=== PATIENT | male | born 1945 | race Caucasian/White ===

== ENCOUNTER → 2020-07-13 11:13 | Outpatient (CLI) | payer OTHER, SELFPAY ==
--- NOTE | ~2020-07-13 | XR_ITS ---
XR chest 2V 07/13/2020 11:45 Indication: Dyspnea with exertion Procedure: PA and lateral views of the chest Comparison: 06/20/2019 Findings: Borderline heart size with mild interstitial edema. Small pleural effusions. No pneumothora x. No acute osseous abnormality. Impression: 1: Mild interstitial edema with small pleural effusions. Reviewed, dictated and finalized at location A. Impression: 1: Mild interstitial edema with small pleural effusions.
== END ==
PROVIDERS: PCP Family Medicine Adolescent Medicine; Visit Provider Family Medicine Adolescent Medicine
DX: R06.9 Unspecified abnormalities of breathing (principal); R60.9 Edema, unspecified; J90 Pleural effusion, not elsewhere classified
CPT/HCPCS: 71046

== ENCOUNTER 2020-07-17 10:09 | Inpatient (IN) | payer OTHER, SELFPAY ==
[2020-07-17] VITALS (31 sets, daily range): BP systolic 94–127; BP diastolic 59–78; PULSE 93–108; RESP 16–35; TEMP 36.2–37; O2SAT 91–96; BMI 29.6
--- NOTE | 2020-07-17 | ECHO_ITS ---
Patient Info Name: Leo Degroot Age: 74 years : 1945 Gender: Male Ht: 72 in Wt: 218 lbs BSA: 2.26 m2 HR: 95 bpm BP: 94 / 59 mmHg Heart Rhythm: Sinus Rhythm Technical Quality: Good Exam Date: 07/17/2020 3:55 PM Exam Location: [facility] Patient Status: Inpatient Admit Date: 07/17/2020 Staff Ordering Physician: Brittney Rose NP Assistant Service Manager: Sukumar Jaime RDCS Attending Provider: Eliazar Rashid MD Referring Physician: Rose AQUINO; Exam Type: CA echo dop color flow w con Study Info Indications I21.4 - Non-ST elevation (NSTEMI) myocardial infarction Complete two-dimensional, color flow and Doppler transthoracic echocardiogram is performed with contrast to opacify the left ventricle and to improve the deliniation of the left ventricle endocardial borders. Strain analysis performed. Contrast/Agitated Saline Contrast/Ag. Saline: Definity Amount: 3.00 ml Administered By: Yasemin Bonilla RN Existing IV Access: Yes History/Risk Factors NSTEMI; CHF w/ BNP 4520, CAD w/ stent to LAD, DM2, SOB, orthopnea, edema. Summary 1. Left ventricular chamber dimension is moderately enlarged. 2. Left ventricular systolic function is severely reduced, estimated at 20-25%. 3. There is mildly increased left ventricular wall thickness. 4. The left ventricular diastolic function is grade II diastolic dysfunction. 5. There is no thrombus visualized in the left ventricle. 6. The basal inferior wall, mid inferior wall, basal anterior wall, mid anterior wall, basal inferoseptal, and mid inferolateral wall are hypokinetic. 7. Left atrial chamber dimension is mildly enlarged. 8. The mitral valve has thickened leaflets. 9. There is moderate mitral valve regurgitation. 10. There is mild pulmonic regurgitation. Left Ventricle Left ventricular chamber dimension is moderately enlarged. Left ventricular systolic function is severely reduced, estimated at 20-25%. There is mildly increased left ventricular wall thickness. The left ventricular diastolic function is grade II diastolic dysfunction. There is no thrombus visualized in the left ventricle. Global longitudinal strain is abnormal at -6 %. The apex, mid inferoseptal, and mid anteroseptal are akinetic. The basal inferior wall, mid inferior wall, basal anterior wall, mid anterior wall, basal inferoseptal, and mid inferolateral wall are hypokinetic. All other bear appear normal. Right Ventricle Right ventricular chamber dimension is normal. Right ventricular systolic function is normal. Left Atria Left atrial chamber dimension is mildly enlarged. Right Atria Right atrial chamber dimension is normal. Atrial Septum Intact interatrial septum visualized by color flow imaging. Aortic Valve The aortic valve is trileaflet. There is mild aortic valve sclerosis. There is no aortic valve stenosis. There is trace aortic valve regurgitation. Pulmonic Valve The pulmonic valve is normal. There is no pulmonic valve stenosis. There is mild pulmonic regurgitation. Mitral Valve The mitral valve has thickened leaflets. There is no mitral valve stenosis. There is moderate mitral valve regurgitation. Tricuspid Valve The tricuspid valve leaflets are normal. There is no significant tricuspid valve stenosis. There is trace tricuspid valve regurgitation. Pericardium/Pleural The pericardium appears normal. There is small pericardial e
--- NOTE | ~2020-07-17 | XR_ITS ---
XR chest ET placement 07/18/2020 07:11 Indication: Endotracheal tube placement. Respiratory arrest. Procedure: AP portable chest Comparison: Comparison to multiple prior studies sequentially, with oldest reviewed study dated 06/20. Findings: Endotracheal tube tip 3.8 cm above the ruddy. NG tube passes into the stomach. Cardiomegal y with pulmonary edema. Small right pleural effusion. No pneumothorax. No acute osseous abnormality. Impression: 1: Cardiomegaly with progression of pulmonary edema. 2: Small right pleural effusion. Reviewed, dictated and finalized at location A. Impression: 1: Cardiomegaly with progression of pulmonary edema. 2: Small right pleural effusion.
--- NOTE | ~2020-07-17 | CT_ITS ---
EXAMINATION: CT brain wo con DATE: 07/18/2020 06:14 INDICATION: Possible stroke. Shortness of breath. TECHNIQUE: Computed tomography (CT) of the head was performed without intravenous contrast. The dose- length product was 681.00 mGy-cm. The mA was adjusted according to patient size. Iterative reconstruc tion technique was employed. COMPARISON: None FINDINGS: No acute intracranial hemorrhage. Mild generalized atrophy. There are scattered mild perive ntricular and subcortical white matter changes, most likely related to small vessel ischemic disease (microangiopathy). There is possible dense right MCA sign which can be associated with acute embolism . CTA of the brain may be useful for further evaluation. Mild mucosal thickening of the sphenoid sinu s. Mastoids are pneumatized. No depressed skull fractures. IMPRESSION: 1. Possible dense right MCA sign. Consider correlation with CTA of the brain as clinically warranted. Reviewed, dictated and finalized at location A.
--- NOTE | ~2020-07-17 | XR_ITS ---
XR chest 1V portable 07/18/2020 06:23 Indication: Respiratory distress. Procedure: AP view of the chest dated 07/18/2020 Comparison: Comparison to multiple prior studies sequentially, with oldest reviewed study dated 05/08. Findings: Heart size normal. Diffuse bilateral airspace disease which may represent edema or pneumoni a. Small right pleural effusion. No pneumothorax. No acute osseous abnormality. Impression: 1: Progression of diffuse bilateral airspace disease which most likely represents edema. Pneumonia le ss favored although not excluded. Reviewed, dictated and finalized at location A. Impression: 1: Progression of diffuse bilateral airspace disease which most likely represen ts edema. Pneumonia less favored although not excluded.
--- NOTE | ~2020-07-17 | XR_ITS ---
XR abdomen NG/feed tube insert INDICATION: Evaluate NG tube position. TECHNIQUE: Limited KUB perform for evaluating NG tube . COMPARISON: No prior studies for comparison. FINDINGS: NG tube tip in the stomach. Visualized bowel gas pattern is unremarkable.Small right pleur al effusion. Bilateral airspace disease, most likely edema. IMPRESSION: 1: NG tube tip in the stomach, side port near the expected location of the GE junction. Reviewed, dictated and finalized at location A.
--- NOTE | ~2020-07-17 | XR_ITS ---
XR chest 2V 07/17/2020 10:49 Indication: Shortness of breath for one week Procedure: 2 view chest Comparison: Comparison to multiple prior studies sequentially, with oldest reviewed study dated 06/20. Findings: Developing bilateral airspace disease and small pleural effusions compared with prior studi es. No pneumothorax. No acute osseous abnormality. Impression: 1: Developing bilateral airspace disease with small pleural effusions. Differential diagnosis include s edema and/or pneumonia. Reviewed, dictated and finalized at location A. Impression: 1: Developing bilateral airspace disease with small pleural effusions. Carlos miles diagnosis includes edema and/or pneumonia.
--- NOTE | 2020-07-17 10:18 | ECG_ITS ---
Measurements Intervals [place] Rate: 101 P: 22 CT: 161 QRS: 31 QRSD: 88 T: 81 QT: 354 QTc: 460 Interpretive Statements SINUS TACHYCARDIA BORDERLINE R WAVE PROGRESSION, ANTERIOR LEADS ANTERIOR ST ELEVATION MYOCARDIAL INJURY- RECENT BASELINE ARTIFACT- I, II, III, AVR, AVL, AVF, V1, V5 ABNORMAL ECG Electronically Signed On 07-17-2020 20:05:45 CDT by Marcel Anton D.O.
[2020-07-17 10:31] LABS: Basophils Percent Auto 0.5 % (0.2-1.2); Eosinophils Percent Auto 0.3 % (0-4.4); Hematocrit 38.8 % (42.0-52.0); Hemoglobin 12.6 g/dL (14.0-18.0); Immature Granulocyte Absolute 0.04 K/mm3 (0.00-0.031); Immature Granulocyte Percent A 0.5 % (0-0.5); Lymphocytes Absolute Auto 1.03 K/mm3 (0.9-3.2); Lymphocytes Percent Auto 11.8 % (18.3-44.2); Mean Corpuscular HGB Conc 32.5 g/dl (32-36); Mean Corpuscular Hemoglobin 30.5 pg (26-34); Mean Corpuscular Volume 93.9 fl (80-100); Monocytes Absolute Auto 0.6 K/mm3 (0.1-0.6); Monocytes Percent Auto 7.3 % (2.6-8.5); Neutrophils Percent Auto 79.6 % (45.5-73.1); Platelet Count Result 251 k/mm3 (150-375); Red Blood Count 4.13 M/mm3 (4.6-6.20); Red Cell Distribution Width 13.5 % (11.5-14.5); White Blood Count 8.8 K/mm3 (4.5-10.0)
[2020-07-17 10:39] LABS: INR 1.1; Prothrombin Time 14.1 Seconds (11.1-14.7)
[2020-07-17 10:40] LABS: Partial Thromboplastin Time 27.7 SECONDS (22.3-36.8)
--- NOTE | 2020-07-17 10:40 | ED.SOB ---
HPI - SOB/Dyspnea General Chief Complaint: Shortness of Breath/Dyspnea Stated Complaint: sob/feet swelling Time Seen by Provider: 07/17/20 10:15 Source: patient Mode of arrival: ambulatory Limitations: no limitations History of Present Illness HPI Narrative: Patient is a 74-year-old male complaining of shortness of breath accompanied by chest tightness x1 week, worse for the past few days. Patient states his shortness of breath is worse with exertion also noticed increased lower extremity edema bilaterally. Patient denies any fever abdominal pain nausea vomiting or diaphoresis. Related Data Allergies Allergy/AdvReac Type Severity Reaction Status Date / Time No Known Allergies Allergy Unknown Verified 07/17/20 10:18 Review of Systems Review of Systems: All systems reviewed & are unremarkable except as noted in HPI and below Constitutional: Constitutional: Denies body ache(s), Denies chills, Denies excessive sweating, Denies fatigue, Denies fever(s), Denies headache(s), Denies lethargy, Denies malaise, Denies weakness and Denies weight loss Eyes: Eyes: Denies blurry vision, Denies change in vision and Denies loss of vision ENT: Denies dizziness, Denies ear discharge, Denies headache(s), Denies lip swelling, Denies epistaxis, Denies nasal congestion, Denies neck pain, Denies throat swelling and Denies tongue swelling Cardiovascular: Cardiovascular: Denies diaphoresis, Denies rapid heart rate, Denies irregular heart rhythm, Denies lightheadedness and Denies palpitations Respiratory: Respiratory: Denies chest congestion, Denies cough, Denies hemoptysis, Denies dyspnea and Denies dyspnea on exertion Gastrointestinal: Gastrointestinal: Denies abdominal pain, Denies melena, Denies hematochezia, Denies diarrhea, Denies nausea, Denies vomiting and Denies hematemesis Musculoskeletal: Musculoskeletal: Denies abnormal gait, Denies deformity, Denies joint swelling, Denies limited range of motion, Denies neck pain and Denies numbness Neurologic: Denies Abnormal speech present, Denies abnormal gait, Denies confusion, Denies dizziness, Denies headache(s), Denies focal weakness, Denies loss of vision, Denies numbness, Denies Other visual disturbances, Denies Sensory deficit (Neuro) and Denies weakness Psychiatric: Psychiatric: Denies confusion, Denies depression, Denies auditory hallucinations, Denies homicidal ideation and Denies suicidal ideation Endocrine: Endocrine: Denies cold intolerance, Denies excessive sweating, Denies fatigue, Denies heat intolerance and Denies palpitations Hematologic/Lymphatic: Hematologic/Lymphatic: Denies easy bleeding and Denies easy bruising Allergic/Immunologic: Allergic/Immunologic: Denies lip swelling, Denies throat swelling and Denies tongue swelling PMF Family History Family History (Updated 06/19/14 @ 07:13 by DOCTOR UNKNOWN) Other Family history of arthritis Hypertension Social History Social History Smoking status: Current every day smoker Alcohol intake: current Exam Const: General: no acute distress (mild distress) Orientation/consciousness: oriented to person, oriented to place, oriented to time, patient oriented x3 and No confusion Limitations: no limitations HENMT: Head: normal to inspection, normocephalic and atraumatic Ears: hearing grossly normal bilaterally, TM normal on the right and TM normal on the left General nose exam: Normal external nose present, Normal nares present and No nasal discharge present Face and sinus: normal facial exam Mouth: Yes Normal oral and palatal mucosa present, Yes lip normal, Yes tongue normal and Yes oropharynx normal Throat: posterior oropharynx normal, tonsils normal and uvula midline Eyes: General: appearance normal, both eyes and all related structures Pupils: Equal, round and reactive pupils present EOM: EOMs intact bilaterally Neck: Neck: normal visual inspection, full ROM, no lymphadenopathy and no meningeal signs Chest: Chest pa
[2020-07-17 10:41] LABS: Anion Gap 8 mmol/L (8-16); Blood Urea Nitrogen 16 mg/dL (9-20); Calcium 8.9 mg/dL (8.4-10.2); Carbon Dioxide 25 mmol/L (22-30); Chloride 102 mmol/L (98-107); Estimated CRCL calculation 81 ml/min; Estimated Glomerular Filt Rate > 60; Glucose 221 mg/dL (75-110); Potassium 4.3 mmol/L (3.4-5.0); Sodium 135 mmol/L (137-145)
[2020-07-17 10:57] LABS: NT Pro B Type Natriuretic Pept 4520 PG/ML (5-100)
[2020-07-17] MEDS: ASPIRIN 81 MG CHEWABLE TABLET 324 MG PO (11:10)
[2020-07-17 11:18] LABS: D Dimer 0.54 ug/mL (<0.48)
[2020-07-17] MEDS: HEPARIN SODIUM 5,000 UNITS/ML VIAL 7000 UNITS IV PUSH (11:47)
[2020-07-17] MEDS: HEPARIN SOD/D5W 100 UNITS/ML 25,000 UNITS/250 ML BAG 15 UNITS IV CONT (11:48)
[2020-07-17] MEDS: FUROSEMIDE INJ 40 MG/4 ML VIAL IV PUSH (12:29)
[2020-07-17 14:05] LABS: Basophils Percent Auto 0.4 % (0.2-1.2); Eosinophils Absolute Auto 0.1 K/mm3 (0-0.3); Eosinophils Percent Auto 0.6 % (0-4.4); Hematocrit 37.8 % (42.0-52.0); Hemoglobin 12.4 g/dL (14.0-18.0); Immature Granulocyte Absolute 0.04 K/mm3 (0.00-0.031); Immature Granulocyte Percent A 0.4 % (0-0.5); Lymphocytes Absolute Auto 1.27 K/mm3 (0.9-3.2); Lymphocytes Percent Auto 12.8 % (18.3-44.2); Mean Corpuscular HGB Conc 32.8 g/dl (32-36); Mean Corpuscular Hemoglobin 30.8 pg (26-34); Mean Corpuscular Volume 93.8 fl (80-100); Mean Platelet Volume 10.2 fl (7.4-10.4); Monocytes Absolute Auto 0.8 K/mm3 (0.1-0.6); Monocytes Percent Auto 8.4 % (2.6-8.5); Neutrophils Absolute Auto 7.7 K/mm3 (1.3-6.7); Neutrophils Percent Auto 77.4 % (45.5-73.1); Platelet Count Result 258 k/mm3 (150-375); Red Blood Count 4.03 M/mm3 (4.6-6.20); Red Cell Distribution Width 13.6 % (11.5-14.5); White Blood Count 9.9 K/mm3 (4.5-10.0)
[2020-07-17 14:11] LABS: INR 1.3; Prothrombin Time 15.4 Seconds (11.1-14.7)
--- NOTE | 2020-07-17 14:20 | PM.CNCAR ---
Assessment and Plan Additional Plan 74-year-old white male with: Symptoms that are obvious for systolic congestive heart failure in this patient with a previous history of coronary artery disease with interventional revascularization of his LAD 24 years ago. He denies any ischemic chest pain but his ECG and troponin levels are obvious in the conclusion that he has had a recent anterior wall infarction. It is also obvious this infarction is not hyperacute. The patient's initial course of treatment would be to institute medical treatment for left ventricular systolic dysfunction along those lines I am going to start carvedilol Entresto and spironolactone. Loop diuretics should be used to try to achieve state of euvolemia. When he is clinically optimized as far as his congestive heart failure is concerned he would probably benefit from a follow-up coronary angiogram. Once again I do not believe this infarction is acute and I do not believe there is any compelling reason to proceed with that this afternoon. He is not symptomatic of any ischemic chest pain. While we are starting medical treatment an echocardiogram will be ordered to assess left ventricular systolic function Carlos Melton MD [facility] History of Present Illness History of Present Illness Consult date/time: Date of service: 07/17/20 14:20 Consult reason: shortness of breath Reason For Visit: nstemi Narrative: This is a 74-year-old man not known to me previously but I am seeing him at the request of the hospitalist. He came to the emergency room reporting symptoms of significant shortness of breath orthopnea and lower extremity edema and came to the emergency room for evaluation of this. The patient states he is not having any symptoms of chest pain pressure or heaviness. He states that the above symptoms began about 2 weeks ago and became more more problematic. On Monday of this week he went to see his PCP who prescribed some furosemide and patient felt minimal if any relief. Today he thought his symptoms were worse especially last night when he was laying down to go to bed he was struggling to breathe and so he came to the emergency department. In the ED his electrocardiogram shows a sinus mechanism with obvious changes of a recent anterior wall MT. His troponin level was elevated at 13 and he was thusly admitted to the hospital. Patient has a history of diabetes mellitus type 2 which he admits to being poorly controlled because of noncompliance with his diet. He thinks his hemoglobin A1c runs in the range of 10-11. He does have dyslipidemia and takes atorvastatin. He reports a history of known coronary artery disease. 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 He was referred for consultation and underwent catheterization and had a Ivan and Ivan stent placed in the left anterior descending artery. He states that he did very well following that event with no recurrence of the symptoms. 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 He is in room 211 and appears to be comfortable he does stated he tries to lay flat he becomes more dyspneic. Review of Systems Constitutional: Constitutional: Reports no additional constitutional complaints Eyes: Eyes: Reports no additional eye complaints ENT: Reports system reviewed and no additional complaints, except as documented Cardiovascular: Cardiovascular: Reports as per HPI Respiratory: Comments: Orthopnea and nocturnal dyspnea as noted in the HPI Gastrointestinal: Gastrointestinal: Reports no additional gastrointestinal complaints Musculoskeletal: Musculoskeletal: Reports no additional musculoskeletal complaints Integumentary/Breasts: Skin/Breast: Reports system reviewed and no additional complaints, except as docu Neurologic: Repo
[2020-07-17 14:36] LABS: Partial Thromboplastin Time 195.7 SECONDS (22.3-36.8)
--- NOTE | 2020-07-17 14:49 | PM.IMHP ---
H&P: HPI History of Present Illness Date/Time: 07/17/20 14:49 Chief complaint: nstemi Narrative: Leo Dgeroot is a 74 year old male Who has had a prior history of having coronary artery disease with a stent to the LAD in 1995. The patient does have a history of gastroesophageal reflux disease. The patient stated that he was having some chest tightness and some shortness of breath on and off for over a week. He did go to primary care doctor who gave him an inhaler and some Mucinex. The patient stated that this did not help. He then was given Lasix this past Monday for the increased edema to his lower extremities. Patient said that he has had a sleep up in his recliner because he could not lay flat due to the shortness of breath. Patient stated he leaned back he could not breathe but if he leaned forward he could breathe better. He gets short of breath with activity as well. The chest pressure has been on and off for the last week. No nausea or vomiting. The patient stated that he has been urinating okay but his stream is last. He denies having any prostate problem the patient admits that his blood sugars have been out of control. And this past Monday he says A1c was 11.6. Patient stated his blood sugars have been over 200s. He is now trying to eat better and take better control of his diabetes. He said that he recently had a new medication added to his diabetic med regimen. He states that his blood sugars are in the upper 100s. EKG was read as sinus tachycardia and anterior myocardial infarction of indeterminate age. No previous EKGs for comparison. Cardiology has been consulted. H&H is 12.4 and 37.8. D-dimer 0.54. CT scan has not been ordered at this time. The patient is currently on heparin drip. Patient's initial troponin 13.400. The 2nd troponin was 18.600. BNP 4520. Patient denies any fever chills or cough. Chest x-ray was read as developing bilateral airspace disease with small pleural effusions differential diagnosis include edema and/or pneumonia. Date of service 07/17/2020 Review of Systems Review of Systems: All systems reviewed & are unremarkable except as noted in HPI and below Constitutional: Constitutional: Reports as per HPI and Reports no additional constitutional complaints Eyes: Eyes: Reports as per HPI and Reports no additional eye complaints ENT: Reports system reviewed and no additional complaints, except as documented and Reports Normal hearing present Cardiovascular: Cardiovascular: Reports no additional cardiovascular complaints Respiratory: Respiratory: Reports no additional respiratory complaints and Reports no additional respiratory complaints Gastrointestinal: Gastrointestinal: Reports as per HPI and Reports no additional gastrointestinal complaints Musculoskeletal: Musculoskeletal: Reports no additional musculoskeletal complaints Integumentary/Breasts: Skin/Breast: Reports system reviewed and no additional complaints, except as docu and Reports as per HPI Neurologic: Reports system reviewed and no additional complaints, except as documented, Reports as per HPI and Reports Normal hearing present Psychiatric: Psychiatric: Reports no additional psychiatric complaints and Reports as per HPI Endocrine: Endocrine: Reports no additional endocrine complaints Hematologic/Lymphatic: Hematologic/Lymphatic: Reports no additional hematologic/lymphatic complaints Allergic/Immunologic: Allergic/Immunologic: Reports no additional allergic/immunologic complaints [facility] Past Medical History Medical History (Updated 07/17/20 @ 15:05 by Brittney Rose NP) CAD (coronary artery disease) Cataracts, bilateral immature Chronic GERD Diverticulosis with a history of having diverticulitis. DM2 (diabetes mellitus, type 2) Hyperlipidemia Hypothyroidism Surgical History Surgical History (Updated 07/17/20 @ 15:00 by Brittney Rose NP) H/O heart artery stent LAD 1995 History of carpal tunnel rele
[2020-07-17 16:12] LABS: Glucose Point of Care 183 (65-105)
[2020-07-17] MEDS: PERFLUTREN LIPID MICROSPHERES 1.5 ML VIAL DILUTED TO 10 ML TOTAL VOLUME IV PUSH (16:22)
[2020-07-17] MEDS: FUROSEMIDE INJ 40 MG/4 ML VIAL 20 MG IV PUSH (17:57)
[2020-07-17 18:51] LABS: Partial Thromboplastin Time 100.6 SECONDS (22.3-36.8)
[2020-07-17 20:33] LABS: Glucose Point of Care 255 (65-105)
[2020-07-17] MEDS: carvediloL 3.125 MG TABLET PO (20:38)
[2020-07-17] MEDS: SACUBITRIL/VALSARTAN 24-26 MG TABLET 1 TAB PO (20:38)
[2020-07-17] MEDS: PANTOPRAZOLE 40 MG TABLET PO (20:38)
[2020-07-18] VITALS (10 sets, daily range): BP systolic 83–99; BP diastolic 53–81; PULSE 84–120; RESP 15–37; TEMP 36.4–37.4; O2SAT 92–100
[2020-07-18 00:34] LABS: Partial Thromboplastin Time 68.6 SECONDS (22.3-36.8)
[2020-07-18] MEDS: HEPARIN SODIUM 5,000 UNITS/ML VIAL 3500 UNITS IV PUSH (00:44)
[2020-07-18] MEDS: HEPARIN SOD/D5W 100 UNITS/ML 25,000 UNITS/250 ML BAG 17 UNITS IV CONT (03:58)
--- NOTE | 2020-07-18 06:00 | PCDIET ---
Pt unable to clear secretions. Has clear white tenacious mucous. Suctioned in Xray.
--- NOTE | 2020-07-18 06:09 | PM.EVENT ---
Event Note Event Note Event Note: Called by nursing staff to assess this 74 year old male who is being treated for an NSTEMI and who tonight suddenly yelled out for help. Nursing staff found him to be in acute respiratory distress and he was placed on 4L of oxygen via NC. On my arrival to bedside the patient has slurred speech, a left facial droop, and significant left sided upper/lower extremity weakness. Auscultation reveals coarse breath sounds b/l. We will obtain a STAT CT brain to rule out a hemorrhagic CVA. We will transfer to ICU as he may have aspirated. He sounds very gurgly on exam. We will obtain STAT CXR. NPO. We will plan for emergent intubation as the patient cannot protect his airway at this time. I will plan to start IV antibiotics and obtain blood cultures if it appears that he has aspiration pneumonia. I will continue to evaluate as needed.
[2020-07-18 06:50] LABS: Basophils Percent Auto 0.4 % (0.2-1.2); Eosinophils Percent Auto 0.3 % (0-4.4); Hematocrit 37.7 % (42.0-52.0); Hemoglobin 12.4 g/dL (14.0-18.0); Immature Granulocyte Absolute 0.04 K/mm3 (0.00-0.031); Immature Granulocyte Percent A 0.4 % (0-0.5); Lymphocytes Absolute Auto 0.99 K/mm3 (0.9-3.2); Lymphocytes Percent Auto 10.3 % (18.3-44.2); Mean Corpuscular HGB Conc 32.9 g/dl (32-36); Mean Corpuscular Hemoglobin 30.5 pg (26-34); Mean Corpuscular Volume 92.9 fl (80-100); Mean Platelet Volume 10.3 fl (7.4-10.4); Monocytes Absolute Auto 0.9 K/mm3 (0.1-0.6); Monocytes Percent Auto 9.1 % (2.6-8.5); Neutrophils Absolute Auto 7.7 K/mm3 (1.3-6.7); Neutrophils Percent Auto 79.5 % (45.5-73.1); Platelet Count Result 252 k/mm3 (150-375); Red Blood Count 4.06 M/mm3 (4.6-6.20); Red Cell Distribution Width 13.5 % (11.5-14.5); White Blood Count 9.7 K/mm3 (4.5-10.0)
--- NOTE | 2020-07-18 06:51 | WPDPROCEDUR ---
Procedures Intubation Intubation Date: 07/18/20 Intubation Time: 06:40 A pre-procedural Time-Out was completed immediately before starting the procedure and confirmed: Patient Identification, Site, Procedure, Patient Position and the Availability of Requisite Equipment: Yes Sedative: etomidate Mg given: 7 Paralytic: succinylcholine Mg given: 150 Laryngoscope: Hui ET tube size: cuffed Tube secured depth (cm): 27 Tube secured location: teeth Tube placement confirmation: visualized tube passing through cords, equal breath sounds bilaterally, no breath sounds over epigastrium and confirmation by capnometry Patient tolerated procedure: well Intubation complications: none Additional comments: Date of service was 07/18/2020 at 06:40 hrs.
[2020-07-18 07:10] LABS: Partial Thromboplastin Time 84.2 SECONDS (22.3-36.8)
[2020-07-18 07:12] LABS: Alanine Aminotransferase 33 U/L (4-50); Albumin Level 3.6 g/dL (3.5-5.1); Alkaline Phosphatase 71 U/L (38-126); Anion Gap 13 mmol/L (8-16); Aspartate Amino Transferase 93 U/L (17-59); Bilirubin,Total 1.1 mg/dL (0.2-1.3); Blood Urea Nitrogen 22 mg/dL (9-20); Calcium 8.6 mg/dL (8.4-10.2); Carbon Dioxide 21 mmol/L (22-30); Chloride 98 mmol/L (98-107); Estimated CRCL calculation 54 ml/min; Estimated Glomerular Filt Rate 60; Glucose 338 mg/dL (75-110); Magnesium 1.4 mg/dL (1.6-2.3); Sodium 132 mmol/L (137-145)
[2020-07-18] MEDS: FENTANYL 2,500MCG/NS250ML(*CRX 2,500 MCG/250 ML BAG IV CONT (07:15)
[2020-07-18 07:44] LABS: Glucose Point of Care 323 (65-105)
--- NOTE | 2020-07-18 08:04 | PC.NURSE ---
AT 0550 PATIENT CALLED OUT FOR HELP. HE WAS FOUND WITH HIS LEGS OFF THE BED, FLAT IN THE BED, CYANOTIC AND DIAPHORETIC. 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 HEPARIN DRIP TURNED OFF, PATIENT PLACED ON 4L NASAL CANNULA IN UPRIGHT POSITION. DR MCGILL NOTIFIED AND HERE TO SEE PATIENT. EKG DONE AND FAXED TO DR ALBRECHT. SHE SPOKE TO DR MCGILL WITH RESULTS. PATIENT SENT DOWN FOR CT OF THE BRAIN AND CXR AND THEN TRANSFERRED TO THE ICU FOR INTUBATION AND FURTHER MANAGEMENT. I SPOKE TO MRS FUENTES AT 0630 AND UPDATED HER ON CONDITION. CARDIOLOGY AND PRIMARY CARE AWARE OF CHANGES. AGAIN SPOKE TO MRS FUENTES AT 0710 TO GET CONSENT FOR A CENTRAL LINE PLACEMENT AND UPDATED HER ON CHANGES, ANSWERED ALL QUESTIONS.
[2020-07-18] MEDS: PHENYLEPHRINE HCL 10 MG/ML VIAL (08:09)
[2020-07-18 08:10] LABS: Thyroid Stimulating Hormone Reflex 0.397 uIU/mL (0.465-4.68)
[2020-07-18 08:42] LABS: Free T4 Free Thyroxine Reflex 2.42 ng/dL (0.78-2.19)
[2020-07-18 09:32] LABS: Alveolar/Arterial O2 Gradient 559.3 mmHg; Base Excess ABG -3.2 mEq/l (+/-2.0); Fractional Inspired Oxygen 100 %; Oxygen Content ABG 17.2 %vol (16.0-22.0); Oxygen Saturation ABG 98.4 % (95.0-100.0); Oxyhemoglobin 96.8 % THb (90.0-100.0); PCO2 ABG 34.7 mmHg (35.0-45.0); PO2 FiO2 Ratio Arterial Blood 1.19 %; Total Hemoglobin 12.5 g/dL (12.0-18.0); pH ABG 7.399 (7.350-7.450)
[2020-07-18 09:36] LABS: Device VENTILATOR; Modified Allen's Test Pass; Site Drawn LEFT FEMORAL
--- NOTE | 2020-07-18 09:36 | WPDCNINT ---
Assessment and Plan Assessment and plan (1) Stroke: Code(s): I63.9 - Cerebral infarction, unspecified Status: Acute Assessment and Plan: right MCA stroke with left-sided upper and lower extremity weakness and facial droop - discussed with neurologist Dr. Mar, who recommended transferring patient to a tertiary care center - discussed with neurologist at [facility] , recommended not giving tPA as patient's PTT is 84, ( he stated that tPA recommended in patients with PTT less than 35) - discussed with Dr. Acharya , interventional neurologist at [facility], wants to transfer the patient to [facility] ICU and he will consult on the patient - discussed with Dr. Wallace, automobile relocation engineer at [facility] to accepted the patient (2) Acute respiratory failure: Code(s): J96.00 - Acute respiratory failure, unspecified whether with hypoxia or hypercapnia Status: Acute Assessment and Plan: patient with acute respiratory failure requiring intubation early this morning - currently on CMV mode of ventilation, peep of 8, 100% FiO2 - chest x-ray and ABGs reviewed, patient being transferred to [facility] (3) Cardiogenic shock: Code(s): R57.0 - Cardiogenic shock Status: Acute Assessment and Plan: patient with cardiogenic shock most likely related to NSTEMI - significant elevation troponins - cardiology is following the patient - currently on Master-Synephrine with adequate mean arterial pressures - urine output has been low (4) Acute non-ST elevation myocardial infarction (NSTEMI): Code(s): I21.4 - Non-ST elevation (NSTEMI) myocardial infarction Status: Acute Assessment and Plan: acute NSTEMI with shortness of breath, chest tightness and elevated troponin - did show some ST changes, cardiology following the patient, - patient was placed on heparin infusion was stopped early this morning can patient had no acute stroke - CT scan of the head did not show any acute bleed (5) Pulmonary edema cardiac cause: Code(s): I50.1 - Left ventricular failure, unspecified Status: Acute Assessment and Plan: flash pulmonary edema likely related to cardiogenic shock versus NSTEMI - patient currently intubated, peep of 8, patient is hypotensive so unable to give diuretics - patient is oxygenating ventilating well, will continue to monitor (6) DM2 (diabetes mellitus, type 2): Code(s): E11.9 - Type 2 diabetes mellitus without complications Status: Chronic Assessment and Plan: sliding scale insulin and Accu-Cheks Additional Plan discussed with patient's Stephany, updated her with patient's condition and plan of care I did discuss with her regarding patient's stroke, acute respiratory failure requiring intubation, also discussed with her regarding transfer to [facility] to which she is agreeable. I answered all questions code status: Full code critical care time spent: 53 minutes Due to a high probability of clinically significant, life threatening deterioration, the patient required my highest level of preparedness to intervene emergently and I personally spent this critical care time directly and personally managing the patient. This critical care time included obtaining a history; examining the patient; pulse oximetry; ordering and review of studies; arranging urgent treatment with development of a management plan; evaluation of patient's response to treatment; frequent reassessment; and discussions with other providers. It was exclusive of separately billable procedures and treating other patients and teaching time. Please see Assessment and Plan section and the rest of the note for further information on patient assessment and treatment Casting Assistant Consult Note Consult date: 07/18/20 Time Seen: 07:06 Reason for consult: Acute respiratory failure, cardiogenic shock, stroke with left-sided weakness HPI: Leo Zuñiga
[2020-07-18 09:37] LABS: Arterial Blood Gas PEEP 8 cmH2O; Arterial Blood Gas Tidal Volume 500 ml; Arterial Blood Gas Vent Mode CMV; Arterial Blood Gas Ventilator rate 16 /MIN
--- NOTE | 2020-07-18 09:52 | WPDPROCEDUR ---
Procedures Central Line Placement Right Femoral: Central Line Date: 07/18/20 Central Line Time: 08:35 Discussed w/ the patient/family/POA,the placement of a central venous catheter, including its clinical necessity/indication & associated potential risks, benifits and alternatives.: Yes The patient/family/POA understand(s) and acknowledge(s) the need to proceed with central venous catheter insertion as an important element of the patient's clinical management.: Yes Time Out Performed: Yes Patient Position: supine Patient placed on monitor/pulse ox: Yes Provider Prep: mask, sterile gown, sterile gloves, Max. sterile barrier precautions, cap and hand hygiene with conventional soap/water or alcohol based hand rub Central line prep: 2% Chlorhexidine scrub and sterile full body sheet applied Local anesthesia used: lidocaine 1% Amount of anesthesia used (ml): 3 Sterile US Technique with sterile gel/sterile probe covers: Yes Central line lumen inserted: triple Malay: 16 Post procedure: sutured in place, good blood return, all ports aspirated, flushed, capped, tegaderm, hemostatic disc, antimicrobial disc and aseptic technique maintained throughout procedure Post procedure x-ray: other ( femoral line not requiring a chest x-ray) Patient tolerated procedure: well Complications: none
--- NOTE | 2020-07-18 12:15 | PM.PNCARD ---
Progress Note: A&P Time Spent With Patient Time: cardiogenic shock, acute stroke, Acute resp failure, NSTEMI, Hx of CAD and remote LAD stent, plan emergency neurology consult, consider hemodynamic support, patient is being transferred to OSH for possible neuro-intervention. Heparin, ASA, cont pressors support. Subjective Date/time seen: 07/18/20 12:15 Interval history: Acute deterioration of mental state today with left side weakness Acute resp failure and hypoxemia and intubated in AM Review of Systems Review of Systems: ROS unobtainable: Yes unobtainable due to endotracheal tube and unobtainable due to mental status Exam Const: General: in distress and uncomfortable Resp: Auscultation: crackles, rhonchi and diminished lung sounds Cardio: Rate: regular rate Rhythm: regular rhythm Heart sounds: no gallops and no murmurs GI: Inspection: normal to inspection Skin: Other: cold sweaty Objective Data Vital Signs Vital Signs: Vital Signs - 24 hr 07/17/20 12:22 07/17/20 12:30 07/17/20 12:31 Temperature Pulse Rate 98 97 97 Respiratory Rate 28 H 34 H 18 Blood Pressure 110/72 Pulse Oximetry 93 92 91 07/17/20 12:45 07/17/20 12:46 07/17/20 13:00 Temperature Pulse Rate 93 Respiratory Rate 30 H Blood Pressure 124/71 113/68 Pulse Oximetry 94 94 93 07/17/20 13:01 07/17/20 13:15 07/17/20 13:16 Temperature Pulse Rate 94 95 95 Respiratory Rate 17 16 20 Blood Pressure 104/76 Pulse Oximetry 93 95 95 07/17/20 13:30 07/17/20 13:33 07/17/20 14:00 Temperature Pulse Rate 102 H 96 108 H Respiratory Rate 28 H 20 Blood Pressure 107/75 107/75 Pulse Oximetry 94 94 07/17/20 14:01 07/17/20 16:00 07/17/20 16:31 Temperature 36.9 C 36.6 C Pulse Rate 104 H 97 97 Respiratory Rate 22 H 20 Blood Pressure 107/74 94/59 L Pulse Oximetry 96 96 07/17/20 18:00 07/17/20 19:06 07/17/20 19:53 Temperature 37.0 C 36.2 C L Pulse Rate 106 H 104 H 103 H Respiratory Rate 22 H 16 Blood Pressure 108/60 106/60 Pulse Oximetry 93 91 07/17/20 20:00 07/17/20 20:38 07/17/20 22:00 Temperature Pulse Rate 105 H 100 98 Respiratory Rate Blood Pressure Pulse Oximetry 93 07/18/20 00:00 07/18/20 02:00 07/18/20 04:00 Temperature 36.5 C 36.4 C L Pulse Rate 94 95 84 Respiratory Rate 18 20 Blood Pressure 98/60 L 83/53 L Pulse Oximetry 92 92 07/18/20 06:00 07/18/20 07:00 07/18/20 07:15 Temperature Pulse Rate 120 H 113 H 110 H Respiratory Rate 37 H Blood Pressure 83/71 L 99/81 L Pulse Oximetry 07/18/20 07:30 07/18/20 07:35 07/18/20 07:45 Temperature Pulse Rate 97 101 H 106 H Respiratory Rate 20 18 22 H Blood Pressure 84/59 L 84/59 L Pulse Oximetry 07/18/20 08:00 Temperature 37.4 C Pulse Rate 87 Respiratory Rate 16 Blood Pressure 95/63 L Pulse Oximetry 100 Intake/Output Intake/Output: Intake & Output 07/15/20 07/16/20 07/17/20 07/18/20 23:59 23:59 23:59 23:59 Intake Total 270 15 Output Total 250 Balance 270 -235 Meds/Results Radiology Results: ITS Impressions Abdomen X-Ray 07/18/20 07:28 IMPRESSION: 1: NG tube tip in the stomach, side port near the expected location of the GE junction. Chest X-Ray 07/18/20 08:14 Impression: 1: Progression of diffuse bilateral airspace disease which most likely represents edema. Pneumonia less favored although not excluded. Head CT 07/18/20 08:26 IMPRESSION: 1. Possible dense right MCA sign. Consider correlation with CTA of the brain as clinically warranted. Labs Labs: Laboratory Results - last 24 hr 07/17/20 07/17/20 07/17/20 13:38 13:55 13:55 WBC 9.9 RBC 4.03 L Hgb 12.4 L Hct 37.8 L MCV 93.8 MCH 30.8 MCHC 32.8 RDW 13.6 Plt Count 258 MPV 10.2 Immature Gran % (Auto) 0.4 Neut % (Auto) 77.4 H Lymph % (Auto) 12.8 L [place] % (Auto) 8.4 Eos % (Auto) 0.6 Baso % (Auto) 0.4 Lymph #
--- NOTE | 2020-07-19 18:30 | PM.TDS ---
Transfer Discharge Sum: Prov Provider Date of admission: 07/17/20 12:15 Primary care physician: Indio Nguyen MD Admitting clinician: Eliazar Rashid MD Consults: 07/17/20 Consult to Physician Routine Comment: SPOKE WITH NESTOR Consulting Provider: Carlos Melton machine scallop cutter/MD group to consult: ESTHER Reason for consultation: NONSTEMI Has provider been notified: Yes 07/18/20 06:20 Consult to Physician Routine Comment: DR. MCGILL SPOKE WITH DR. DOWELL Consulting Provider: Bryan Dowell machine scallop cutter/MD group to consult: Dr. Dowell Reason for consultation: ICU transfer Has provider been notified: Yes DS: Admitting Diagnosis Admitting Diagnosis Admitting Diagnosis: nstemi DS: Discharge Diagnosis Discharge Diagnosis (1) Acute non-ST elevation myocardial infarction (NSTEMI): Code(s): I21.4 - Non-ST elevation (NSTEMI) myocardial infarction Status: Acute Assessment and Plan: chest pain subsided well and patient but troponin peaked at 16. He was on a heparin drip. Cardiology has seen the patient. He was placed on a beta-anita. Echo revealed EF of 20-25% with several hypokinetic segments. (2) Pulmonary edema cardiac cause: Code(s): I50.1 - Left ventricular failure, unspecified Status: Acute Assessment and Plan: secondary to acute systolic heart failure. He is on Lasix Coreg Entresto and Spironolactone became more acutely short of breath a.m. before transfer had to be intubated and mechanically ventilated (3) CAD (coronary artery disease): Code(s): I25.10 - Atherosclerotic heart disease of [place] coronary artery without angina pectoris Status: Chronic Assessment and Plan: cardiology has seen the patient may the recommendations. Patient is on heparin drip. The patient has had LAD stent in 1995. Cardiology suspects that that stent is most likely occluded. with pulmonary edema and neurology changes was transferred to [facility] where neurology and cardiac issues will be addressed (4) DM2 (diabetes mellitus, type 2): Code(s): E11.9 - Type 2 diabetes mellitus without complications Status: Chronic Assessment and Plan: Patient stated that his last hemoglobin A1c this past Monday was 11.6. The patient stated that his blood sugars have been in the 2 and 300s. Recently had a new medication added to his list. continued with oral hypoglycemics and do sliding scale insulin with moderate sliding scale. (5) Hypothyroidism: Code(s): E03.9 - Hypothyroidism, unspecified Status: Chronic Assessment and Plan: continue levothyroxine. (6) Hyperlipidemia: Code(s): E78.5 - Hyperlipidemia, unspecified Status: Chronic Assessment and Plan: Continue with atorvastatin (7) Anemia: Code(s): D64.9 - Anemia, unspecified Status: Acute Assessment and Plan: monitor closely since the patient is on heparin drip. (8) Stroke: Code(s): I63.9 - Cerebral infarction, unspecified Status: Acute Assessment and Plan: after patient had to be mechanically ventilated for respiratory failure developed left-sided weakness and facial droop. CT scan revealed what looked to be possible acute right MCA occlusion. [facility] neurology was contacted and patient transferred to ICU at [facility] Transfer Discharge Sum: Med Medications Active and Home Medications: Home Medications aspirin 325 mg PO DAILY 07/17/20 [History Confirmed 07/17/20] atorvastatin 20 mg PO DAILY 07/17/20 [History Confirmed 07/17/20] furosemide 20 mg PO DAILY 07/17/20 [History Confirmed 07/17/20] glimepiride 4 mg PO DAILY 07/17/20 [History Confirmed 07/17/20] ipratropium bromide 1 spray INTRANASAL DAILY 07/17/20 [History Confirmed 07/17/20] levothyroxine 200 mcg PO DAILY 07/17/20 [History Confirmed 07/17/20] metformin 1,000 mg PO DAILY 07/17/20 [History Confirmed 07/17/20] pantoprazole 40 mg PO
== END 2020-07-18 10:12 | disposition short-term general hospital (02) | DRG 280 ==
LOC: ANHED 12:14 → ANHIMU 12:42 → ANHICU 07-18 06:37
PROVIDERS: Family Medicine; Nurse Practitioner; Specialist; Admitting Provider Internal Medicine; Emergency Provider Emergency Medicine; PCP Family Medicine Adolescent Medicine; Visit Provider Internal Medicine
DX: I21.4 Non-ST elevation (NSTEMI) myocardial infarction (principal); I50.21 Acute systolic (congestive) heart failure; J96.00 Acute respiratory failure, unspecified whether with hypoxia or hypercapnia; R57.0 Cardiogenic shock; I63.511 Cerebral infarction due to unspecified occlusion or stenosis of right middle cerebral artery; G81.94 Hemiplegia, unspecified affecting left nondominant side; R29.810 Facial weakness; R47.81 Slurred speech; I11.0 Hypertensive heart disease with heart failure; I25.10 Atherosclerotic heart disease of native coronary artery without angina pectoris; E11.9 Type 2 diabetes mellitus without complications; E03.9 Hypothyroidism, unspecified; E78.5 Hyperlipidemia, unspecified; K21.9 Gastro-esophageal reflux disease without esophagitis; D64.9 Anemia, unspecified; F17.210 Nicotine dependence, cigarettes, uncomplicated; Z95.5 Presence of coronary angioplasty implant and graft
CPT/HCPCS: 31500; 36415; 36600; 70450; 71045; 71046; 80048; 80053; 82805; 83735; 83880; 84439; 84443; 84484; 85025; 85380; 85610; 85730; 87040; 93005; 94002; 96365; 99291; A9270; C1751; C8929; J0330; J1644; J1940; J2250; J2370; J3010; J7060; Q9957